=== PATIENT | female | born 1960 ===

== ENCOUNTER 2020-12-01 08:16 | Day surgery (SDC) | payer OTHER ==
[~2020-12-01] VITALS: Ht 157.5 cm; Wt 52.9 kg
[2020-12-01] MEDS ORDERED: BYSTOLIC20 MG PO (08:39)
[2020-12-01] MEDS ORDERED: PRINIVIL40 MG PO (08:40)
[2020-12-01] MEDS ORDERED: NORVASC 10MG10 MG PO (08:40)
[2020-12-01 09:02] VITALS: BP 127/83; PULSE 82; TEMP 98.7
[2020-12-01 09:55] VITALS: BP 111/81; PULSE 84; TEMP 97.8
--- NOTE | 2020-12-01 09:55 | NUR ---
PATIENT TO RECOVERY BAY 7 POST PROCEDURE VIA CART ACCOMPANIED BY SELWYN BACK. PATIENT TO CHAIR AMBULATORY WITH 1 PERSON ASSIST. DENIES NAUSEA OR DIZZINESS. MADE COMFORTABLE IN CHAIR. WARM BLANKET GIVEN. REPORT FROM WONG SAMANO. VITAL SIGNS TAKEN. GIVEN JUICE AND CRACKERS AND PEANUT BUTTER.
[2020-12-01 10:00] VITALS: BP 124/82; PULSE 87
[2020-12-01 10:15] VITALS: BP 126/84; PULSE 84
--- NOTE | 2020-12-01 10:17 | NUR ---
IV SITED TO RIGHT HAND DISCONTINUED. NO REDNESS OR SWELLING. PRESSURE APPLIED AND SECURED WITH COTTONG AND COBAN
--- NOTE | 2020-12-01 10:20 | NUR ---
AT BEDSIDE TO TALK WITH PATIENT.
--- NOTE | 2020-12-01 10:30 | NUR ---
DISMISSAL INSTRUCTIONS REVIEWED WITH PATIENT VERBALLY AND PATIENT GIVEN PRINTED COPIES WELL. PATIENT GIVES VERBAL UNDERSTANDING. DENIES QUESTIONS. PATIENT SIGNS IN ACKNOWLEDGMENT OF RECEIPT OF INSTRUCTIONS
--- NOTE | 2020-12-01 10:34 | NUR ---
PATIENT ACCOMPAINED TO WAITING ON AIR TALENT VIA WHEELCHAIR BY Alice HARTLEY RN. ASSISTED TO VEHICLE
== END 2020-12-01 10:34 | disposition home or self-care (01) ==
LOC: SDCO 08:16
DX: Z12.11 Encounter for screening for malignant neoplasm of colon (principal); D12.2 Benign neoplasm of ascending colon; K57.30 Diverticulosis of large intestine without perforation or abscess without bleeding; Z87.891 Personal history of nicotine dependence; Z20.822 Contact with and (suspected) exposure to COVID-19
CPT/HCPCS: J2704; J7120